=== PATIENT | female | born 1930 | race Caucasian/White ===

== ENCOUNTER → 2016-08-20 | Emergency (ER) | payer MEDICARE, OTHER ==
[~2016-08-20] MED LIST: ASPIR 8181 MG PO; CALCIUM 500 +1 EACH PO; CAYENNE450 MG PO; COQ-1030 MG PO; CRANBERRY400 MG PO; FISH OIL 1,0001 EAC1 PO; FLAX, FISH & B1 EACH PO; THERAGRAN-M1 TAB PO; TYLENOL EXTRA500 MG PO; VITAMIN B-650 MG PO; [UNRECOGNIZED DRUG - OTHER] PO
== END | disposition disaster alternative care site (69) ==
LOC: GAMB 18:55
DX: M54.9 Dorsalgia, unspecified (principal); G89.29 Other chronic pain; W19.XXXA Unspecified fall, initial encounter

== ENCOUNTER 2016-08-27 17:40 | Inpatient (IN) | payer MEDICARE, OTHER ==
[~2016-08-27] VITALS: Ht 162.6 cm; Wt 89.1 kg
--- NOTE | ~2016-08-27 | DS ---
PATIENT'S NAME: ALEX ASCENCIO [facility] AGE: 85 Y [address] ROOM: [address] [place] [id number] LOCATION: GPCU ADMIT DATE: 08/27/2016 Discharge Summary DISCHARGE DATE: FAMILY PHYSICIAN: Gregory Warner MD ATTENDING PHYSICIAN: Carleen Chambers Interim Discharge Summary PRINCIPAL DIAGNOSES: 1. Cardiac syncope. 2. Severe aortic stenosis, status post valvuloplasty. 3. Acute kidney injury on chronic kidney disease 3. 4. Essential hypertension. BRIEF HOSPITAL COURSE: This is an 85-year-old female who was admitted for evaluation of recurrent falls and syncope at home. Upon evaluation, she was noted to have very significant aortic murmur and was subsequently evaluated by an echocardiogram and she was found to have a critical aortic stenosis. The patient was seen by Cardiology and subsequently done an aortic valve valvuloplasty. Plan going forward is to continue to monitor the patient and she is to follow up with Cardiology as an outpatient for possible TAVR evaluation. The patient during her hospitalization had continued to do well, had not had any further syncopal episodes. The patient worked with PT, OT, and had done well with that since as well. The patient today is ambulating well, going to the bathroom and back without any issues. PHYSICAL EXAMINATION: GENERAL: The patient is awake, alert, oriented x3, in no acute distress. HEART: S1, S2. Regular rate and rhythm. ABDOMEN: Soft, nontender, and nondistended. EXTREMITIES: Without edema. NEUROLOGIC: Nonfocal. DISPOSITION: Per hospitalist taking care of the patient. As of now, discharge plans are to [facility] in a.m. The rest of discharge planning is to be determined per the hospitalist taking care of the patient's care from here on. MD RACHEL ONEILL/modl PATIENT'S NAME: ALEX ASCENCIO [facility] AGE: 85 Y [address] ROOM: [address] [place], [place] [address] LOCATION: GPCU ADMIT DATE: 08/27/2016 Discharge Summary DISCHARGE DATE: FAMILY PHYSICIAN: Gregory Warner MD ATTENDING PHYSICIAN: Carleen Chambers /[id number] d: 09/03/16 0151 t: 09/17/16 1523, DISCHARGE SUMMARY
--- NOTE | ~2016-08-27 | ECHO ---
Transthoracic Echocardiography Report (TTE) Demographics Patient Name ALEX ASCENCIO Date of Study 08/28/2016 Patient Number [id number] Visit Number [id number] Date of 1930 Room Number G6311 Gender Female Number Age 85 year(s) Referring Reyes Guerrero Community Relations Assistant Frieda Dorsey, Physician RT,RVT,RDCS Physician Interpreting Nathaniel Johnson MD Traffic Signal Supervisor Maintenance Physician Supervising Ordering Reyes Guerrero MD/MLP Physician MD Nurse Stress Special Warfare Boat Operator Conclusions Contractility Score Summary Normal Left Ventricular contractility was noted. Summary The estimated left ventricular ejection fraction is 60-65%. The left atrium is mildly dilated by LA volume index measurement. Moderate assymetric septal left ventricular hypertrophy. Mild mitral regurgitation by color Doppler. There is critical aortic stenosis by the Continuity Equation. The peak velocity is 5.3 m/s, the mean gradient is 65 mmHg, and the valve area based on the continuity equation is 0.3 cm2, stroke volume index is 38 ml/m2. There is mild pulmonary hypertension. The pulmonary pressure (RVSP) is 38.0 mmHg. Procedure Type of Study TTE procedure:2D Echocardiogram, M-Mode, Doppler , Color Doppler. Procedure Date Date: 08/28/2016 Start: 07:37 AM Study Location: Inpatient Portable Technical Quality: Adequate visualization Indications:Abnormal troponin. Additional Indications:Murmur. Appropriate Use Criteria: 9 Patient Status: Routine HR: 86 bpm BP: 147/66 mmHg M-Mode/2D Measurements LV Diastolic Dimension: 2.47 cm LV Systolic Dimension: 1.43 cm LV Septum Diastolic: 1.5 cm LV PW Diastolic: 1.24 cm AO Root Dimension: 2.3 cm Cardiac Output: 3.24 l/min LA Dimension: 3.5 cm EF Estimated: 60 % LVOT: 1.8 cm LVOT VTI: 14.8 cm LV Stroke volume: 37.64 ml Doppler Measurements AV Peak Velocity: 5.32 m/s MV Peak E-Wave: 1.15 m/s AV Peak Gradient: 113.21 mmHg MV Peak A-Wave: 1.89 m/s AV Mean Gradient: 68 mmHg MV E/A Ratio: 0.61 LVOT Peak Velocity: 0.63 m/s MV P1/2t: 40 msec TR Gradient:27.67 mmHg Estimated RAP:10 mmHg Estimated PASP: 37.67 mmHg Estimated RVSP: 38 mmHg A' Septal Velocity: 0.09 m/s E' Septal Velocity: 0.03 m/s MV E/E' Ratio: 36.1 Findings Left Ventricle Moderate assymetric septal left ventricular hypertrophy. Right Ventricle Normal right ventricle structure and function. Left Atrium The left atrium is mildly dilated by LA volume index measurement. Right Atrium Normal right atrial size. Mitral Valve Mild mitral regurgitation by color Doppler. Aortic Valve There is critical aortic stenosis by the Continuity Equation. The peak velocity is 5.3 m/s, the mean gradient is 65 mmHg, and the valve area based on the continuity equation is 0.3 cm2, stroke volume index is 38 ml/m2. Tricuspid Valve There is mild pulmonary hypertension. The pulmonary pressure (RVSP) is 38.0 mmHg. Pulmonic Valve Normal pulmonic valve structure and function. Pericardial Effusion No evidence of pericardial effusion. Miscellaneous Visualized portions of the aortic root and ascending aorta appear normal in size. Pleural Effusion No evidence of pleural effusion. Contractility Score LV regional wall motion:(0-Non visualized 1-Normal 2-Hypokinesis 3-Akinesis 4-Dyskinesis 5-Aneurysm) Signature dtt: Alex Armstrong (cardio) dtd: 08/28/16 0737 Physician Self Edit
--- NOTE | ~2016-08-27 | CON ---
PATIENT'S NAME: ALEX ASCENCIO [facility] AGE: 85 Y [address] ROOM: [id number] [place], [place] [address] LOCATION: GPCU ADMIT DATE: 08/27/2016 Consultation DISCHARGE DATE: FAMILY PHYSICIAN: Gregory Warner MD ATTENDING PHYSICIAN: BACILIO CHAMBERS REFERRING PHYSICIAN: HERIBERTO STEPHENS, Cup Machine Operator REFERRING PHYSICIAN: Bacilio Chambers M.D. HISTORY OF PRESENT ILLNESS: This is an 85-year-old female, who was admitted with weakness and frequent falls this past week. First time, she fell when she went to sit down on the chair that rolled out behind her. The second time, she thinks that she caught her cane in a rug and causing her to fall. The third time, her knee buckled. The last time she was found on the floor early in the a.m. after going to the bathroom by her family. Family reports that she also is slowing down and not moving very well. She denies shortness of breath, but also states that she does not get up and do much. She denies lightheadedness or dizziness. There is no report of palpitations. She has had some problems with increased peripheral edema, but no orthopnea or PND. She denies presyncope, but her family questions if she is not feeling lightheaded or dizzy. She reports to me that she is very frightened because of all of her falls. She does carry a history of aortic stenotic murmur, but in the past has refused any kind of treatment, but currently she is willing to talk about different treatment for that valve "if that is the cause of her falls." PAST MEDICAL HISTORY: 1. Stage IV endometrial cancer, post hysterectomy, chemotherapy and radiation in 2004. 2. Hyperlipidemia that was diagnosed in 2002. 3. Arthritis of the knees and hips. 4. Chronic kidney disease. 5. Aortic stenosis. 6. Osteopenia. 7. History of mild carotid artery disease per screening at [facility]. PAST SURGICAL HISTORY: In 1959 and 1963, 2, para 2, no AB. On 03/19/1997, she had an open cholecystectomy. On 10/20/1998, right cataract surgery. On 12/15/1998, left cataract surgery. In 2001, L4-L5 stenosis with microdiskectomy at the L4-L5 level with decompression of the lateral recess and partial medial facetectomy by Dr. Bill. On 09/29/2001, right total hip arthroplasty. On 06/01/2003, right total knee arthroplasty. On 02/28/2004, left total hip arthroplasty. On 01/21/2007, complex primary left total knee arthroplasty with computer PATIENT'S NAME: ALEX ASCENCIO [facility] AGE: 85 Y [address] ROOM: [id number] [place] [id number] LOCATION: GPCU ADMIT DATE: 08/27/2016 Consultation DISCHARGE DATE: FAMILY PHYSICIAN: Gregory Warner MD ATTENDING PHYSICIAN: BACILIO CHAMBERS navigation assistance. On 10/29/2007, total abdominal hysterectomy with bilateral salpingo-oophorectomy with lymph node dissection with 2 of 19 nodes positive for cancer. On 12/22/2014, cysto and retrogrades for hematuria and an abnormal CT - normal. ALLERGIES: MORPHINE CAUSES VOMITING. HOME MEDICATIONS: 1. Aspirin. 2. Multivitamins. FAMILY HISTORY: Mother had complications of diabetes mellitus. Father in his sleep. She had 8 siblings. One brother had coronary artery disease, the extent of this is unknown. One sister had pancreatic cancer and another sister had lung cancer, she was a heavy smoker. SOCIAL HISTORY: The patient currently lives at home alone. She is a lifelong nonsmoker and nondrinker. REVIEW OF SYSTEMS: GENERAL: She has been feeling a little more tired and slowing down. HEAD: No history of headache. EYES: No blurred vision or double vision. She wears corrective lenses. EARS: No problems with hearing. NOSE: No epistaxis or rhinorrhea. MOUTH: She has full set of dentures. THROAT: No difficulty with swallowing. NECK: No difficulty with arthritis. No pain with moving. PULMONARY: No cough or hemoptysis. CV: Per HPI. GI: Negative for nausea, vomiting, or diarrhea. No melena or hematochezia. : She had had hematuria, nothing recently. No problems with dysuria or pain with urination. Currently, she has been incontinent. MUSCULOSKELETAL: She has arthritis of the joints and hips. She also has a history of osteopenia. NEUROLOGIC: No TIA or CVA symptomatology, but family reports she is having difficulty with her memory. SKIN: No hair, nails, or skin changes that are concerning. PSYCHIATRIC: No history of depression. She is quite anxious. PHYSICAL EXAMINATION: VITAL SIGNS: She is 5 feet and 4 inches, weighs 192 pounds, blood pressure is PATIENT'S NAME: ALEX ASCENCIO [facility] AGE: 85 Y [address] ROOM: [place] [address] LOCATION: GPCU ADMIT DATE: 08/27/2016 Consultation DISCHARGE DATE: FAMILY PHYSICIAN: Gregory Warner MD ATTENDING PHYSICIAN: BACILIO CHAMBERS 152/71, heart rate is 90 and regular, and temperature is 97.6. SKIN: Warm, dry, and pink. HEENT: Pupils were equal. They did react briskly. NECK: Soft and supple. I am unable to hear any carotid bruits. LUNGS: Lung sounds are clear to auscultation anteriorly and posteriorly with good symmetrical chest rise. There is no evidence of wheezes, rales, or rhonchi. CV: Regular with a loud grade 3 to 4 aortic stenotic murmur heard best at the second intercostal space to the right of the sternum. PMI is nondisplaced. ABDOMEN: Soft. Bowel sounds are present in all 4 quadrants. EXTREMITIES: No peripheral edema. No clubbing. No cyanosis. NEUROLOGIC: Motor and sensory exam are normal in the upper extremities and lower extremities. Gait was not assessed. PSYCHIATRIC: She is alert, very anxious. LABORATORY DATA: She had an MRI of her head that was normal after her fall. Troponin is 0.334 to 0.564 and down to 0.322. ProBNP is 5898. Hemoglobin 11.4, hematocrit 33.9, and normal white count. BUN 40, creatinine 2.0, sodium 143, potassium is 3.7, and magnesium is 1.9. ASSESSMENT: 1. Syncope. Her telemetry is showing a regular sinus rhythm with inverted P- waves, rates are in the 70s to 80s. We will check orthostatic blood pressures to rule out orthostatic hypotension. 2. Aortic stenosis. This is very significant on exam. Her echocardiogram is pending. She may need balloon angioplasty and aortic valve procedure. She did not dismiss the idea of possibly having this done. 3. Acute on chronic kidney disease. Her baseline creatinine is 1.4. We will continue to monitor this closely. 4. Elevated creatinine. Her troponin I is most likely secondary to the elevation in creatinine. She has not had any problems with exertional chest pain. We will not pursue a stress test. Further recommendations will be forthcoming once Dr. Godinez reviews the echocardiogram. The assessment and plan, history of present illness, and physical exam are per Dr. Godinez. Further recommendations will be forthcoming. STEFFI DIOR APRN FOR TRISTON GODINEZ MD TGP/osvaldol PATIENT'S NAME: ALEX ASCENCIO [facility] AGE: 85 Y [address] ROOM: [place] [address] [facility] ADMIT DATE: 08/27/2016 Consultation DISCHARGE DATE: FAMILY PHYSICIAN: Gregory Warner MD ATTENDING PHYSICIAN: BACILIO CHAMBERS /[id number] d: 08/31/16 1815 t: 09/14/16 1159, CONSULTATION REPORT
--- NOTE | ~2016-08-27 | HP ---
PATIENT'S NAME: ALEX SACENCIO [facility] AGE: 85 Y [address] ROOM: [place] [id number] LOCATION: GPCU ADMIT DATE: 08/27/2016 History & Physical DISCHARGE DATE: FAMILY PHYSICIAN: Gregory Warner MD ATTENDING PHYSICIAN: BACILIO BARAJAS DATE OF SERVICE: CHIEF COMPLAINT: Falls. HISTORY OF PRESENT ILLNESS: This is an 85-year-old lady with a past medical history of endometrial carcinoma, status post hysterectomy; bilateral knee and hip replacement; who lives at home by herself; started experiencing falls for the last couple of days. She in total experience 4 falls and hit her head on the carpeted floor. She was taken to the primary care physician where basic lab work was done, which did show elevated creatinine and mildly elevated troponin levels. She was transferred here for further medical care. On my encounter, she denied having any dizziness, any vertigo, any trouble with the eyes, any trouble swallowing, any chest pain, any chest pressure, any shortness of breath, any cough or sputum production, any abdominal pain, any constipation or diarrhea, any burning on urination, PND, or orthopnea. She endorsed having drinking a lot of coffee recently without any adequate other hydration. PAST MEDICAL HISTORY: 1. History of aortic murmur, which had been evaluated in the past. 2. History of endometrial carcinoma, status post hysterectomy and radiation and chemo. 3. Osteoarthritis, status post bilateral knee as well as hip replacement. MEDICATIONS: 1. Aspirin 81 mg p.o. once daily. 2. Multiple nutritional supplements and vitamins at home. ALLERGIES: MORPHINE. SOCIAL HISTORY: Never a smoker. No alcohol or drug abuse. Lives by herself. FAMILY HISTORY: Sister had cancer. One of the brothers had diabetes. REVIEW OF SYSTEMS: PATIENT'S NAME: ALEX ASCENCIO [facility] AGE: 85 Y [address] ROOM: [address] [address] LOCATION: GPCU ADMIT DATE: 08/27/2016 History & Physical DISCHARGE DATE: FAMILY PHYSICIAN: Gregory Warner MD ATTENDING PHYSICIAN: BACILIO BARAJAS All other systems reviewed and were negative except as mentioned in the HPI. PHYSICAL EXAMINATION: VITAL SIGNS: 156/76, 16, afebrile, 89. GENERAL: No acute distress. Alert and oriented to x3. HEAD: Atraumatic and normocephalic. Mild bruise on the forehead and on the right cheek. EYES: Nonicteric. No pallor. OROPHARYNX: Dry mucous membranes. CARDIOVASCULAR: S1 and S2. Systolic ejection murmur 3/6 at the aortic region radiating to the carotids. RESPIRATORY: Clear to auscultation bilaterally. ABDOMEN: Soft, nontender, and nondistended. Bowel sounds are present. EXTREMITIES: +1 extremity edema on the left side. SKIN: Dryness, but no bruises noted. PSYCH: Normal affect, mood, and speech. NEURO: Cranial nerves II through XII intact. No motor or sensory deficits noted. LABORATORY DATA: Lab work from the outside provider noted that the creatinine is 2.1, up from baseline of 1.4. Her cardiac troponin was 0.33, which was withdrawn at the clinic. I do not have the full lab report yet. ASSESSMENT AND PLAN: 1. Acute kidney insufficiency on chronic kidney disease secondary to dehydration. 2. Dehydration. 3. Syncopal episodes. 4. Multiple falls. 5. History of endometrial cancer. 6. Aortic murmur, likely aortic stenosis. Myocardial injury in the 2nd of poor renal function. We are going to admit this patient to the PCU at this point. We are going to obtain orthostatic vitals. I will obtain a CAT scan in order to investigate the syncopal episode, 12-lead EKG as well as echocardiography. Meanwhile, we will hydrate the patient and monitor her labs in the morning. She had history of multiple urinary tract infections in the past, so we will send a UA as well. We will involve Physical Therapy as well as Occupational Therapy. Idea of assisted living facility was brought in and the patient is agreeable to that. Echocardiography as mentioned above will be done to evaluate aortic valve as a possible cause of these multiple syncopal episodes. Regarding her mildly elevated troponin levels, I believe this is secondary to LO and not representing any cardiac ischemia. We will cycle 3 sets and see any rise and PATIENT'S NAME: ALEX ASCENCIO [facility] AGE: 85 Y [address] ROOM: [place] [address] LOCATION: [facility] ADMIT DATE: 08/27/2016 History & Physical DISCHARGE DATE: FAMILY PHYSICIAN: Gregory Warner MD ATTENDING PHYSICIAN: BACILIO BARAJAS, and treat it accordingly. The patient is DNR/DNI. MD MATI UGARTE/osvaldol /[id number] D: [id number] T: [id number] HISTORY & PHYSICAL
--- NOTE | ~2016-08-27 | ECHO ---
Transthoracic Echocardiography Report (TTE) Demographics Patient Name ALEX ASCENCIO Date of Study 08/29/2016 Patient Number [id number] Visit Number [id number] Date of 1930 Room Number G6311 Gender Female Number Age 85 year(s) Referring Arabella Romero Accordion Tuner Fabián Jimenez Physician RD, T Physician Interpreting Arabella Romero Television Production Clerk Physician MD Supervising Ordering Arabella Romero MD/MLP Physician MD Nurse Stress Teller Vault Conclusions Summary Limited echo post BAV with 18 mm Zmed balloon: Aortic valve gradients reduced from mean gradient of 65 mmHg to 25 mmHg post BAV. Procedure Type of Study TTE procedure:Doppler , Echo Limited w/o Contrast. Procedure Date Date: 08/29/2016 Start: 09:25 AM Study Location: Machinist Brake Technical Quality: Adequate visualization Indications:Aortic stenosis. Additional Indications:Post BAV Appropriate Use Criteria: 9 Patient Status: SARAH Allergies - Morphine. Doppler Measurements AV Peak Velocity: 3.19 m/s AV Peak Gradient: 40.7 mmHg AV Mean Gradient: 25 mmHg Signature dtt: MARCOS VALLES dtd: 08/29/16 0925 Physician Self Edit
--- NOTE | ~2016-08-27 | CATH ---
Cardiac Diagnostic + PCI Report Demographics Patient Name SONU Aguilar Gender Female Date of 1930 Age 85 year(s) Patient Number [id number] Date of Study 08/29/2016 Visit Number [id number] Room Number G6311 [place] [id number] Ht 162.56 cm Wt 87.[address] Ref[address] [facility] Primary Physician Physician Jose M PENNINGTON Performing [facility] Secondary Physician Physician Heather PENNINGTON Diagnostic [facility] Assisting Physician Physician Heather PENNINGTON Interventional [facility] Physician Scrap Baler Physician Heather PENNINGTON Findings and Conclusions Diagnostic Findings and Conclusion 1. Mild luminal irregularities in non dominant RCA. No evidence of any significant epicardial CAD. 2. Critical with syncope/DE OLIVEIRA/fatigue. Mean gradient pre BAV 65 mmHg. Diagnostic Recommendations Proceed with BAV. Interventional Findings and Conclusion 1. S/P BAV with 18 mm ZMed balloon with 17 cc diluted contrast in balloon. 2. Temp pacer for BAV. Interventional Recommendations Echo: Pre-BAV mean gradient 65 mmHg. Post BAV 25 mmHg. Continue observation in ICU. Patient tolerated the procedure well without any acute complications. PT/OT upon discharge. Reevaluate patient in clinic and if there is improvement in symptoms, she will be a good candidate for TAVR. Thank you Dr. Armstrong for allowing us to participate in the care of Mrs. Gu. Procedure Description The patient was brought to the diagnostic cardiac catheterization-EP laboratory in the fasting, non-sedated state. Informed consent was obtained in the written and verbal form after the risks and benefits were explained. The patient had no further questions and agreed to proceed. The planned puncture-incision site(s) were shaved and prepped with ChloraPrep. After a three minute dry time the patient was draped in the usual sterile manner. Conscious sedation and pain control medications were delivered by a registered nurse under physician guidance. Surface ECG rhythm, blood pressure measurement, supplemental oxygen, and pulse oximetry were monitored throughout the procedure. Femoral arterial access. The access site was infiltrated with lidocaine. The vessel was entered with the Seldinger technique. A sheath was advanced into the vessel and used for catheter placement. Venous access. The access site was infiltrated with lidocaine. The vessel was entered with the Seldinger technique. A sheath was advanced into the vessel and used for catheter placement. Perclose(s) was advanced into the artery and deployed. These are to be tied at the end of the procedure. Temporary pacing. Pacing was achieved from the right ventricular apex. Threshold verification and amplitude adjustment were performed. The temporary pacemaker was removed at the end of the procedure. Aortic valvuloplasty. Following this an AL1 catheter was advanced into the ascending aorta using the 0.35 J-wire and the J-wire was withdrawn. A straight-tipped fixed core wire was used to cross the aortic valve in a retrograde fashion and the AL1 catheter was advanced into the left ventricle and the straight tipped wire was withdrawn. Following this an exchange length Amplatzer Super Stiff wire with the shape of the left ventricular apex was advanced into the left ventricle through the AL1 and the AL1 catheter was withdrawn. For proper positioning of the wire at the LV apex without inducing sustained ventricular tachycardia, a pigtail was used and the pigtail was withdrawn. Following this an aortic balloon was placed across the aortic valve. Rapid pacing was started at the rate of 160 beats per minute and absence of 2:1 block was confirmed. The pulsed-wave pressure of less than 50 mm was achieved, rapid inflation of the balloon was performed and the balloon was stabilized across the aortic valve. After the balloon dilatation the gradient was then measured by Echo. Following this, both the balloon and the wire were withdrawn from the left ventricle and withdrawn from the body. With the help of the [id number] technique. Removal of temporary pacemaker under fluoro guidance without difficulties. Hemostasis: The arterial sheath(s) was removed. Perclose(s) were tied and hemostasis was achieved. Hemostasis: The venous sheath(s) was removed. The patient was transferred to the nursing floor with continuous monitoring via cart accompanied by a nurse. The patient left the laboratory in stable condition. Diagnostic Cath Status: Urgent Procedure Procedure Type Diagnostic procedure:Angiography:, Coronary Angios w/LHC, Support:, Temporary Pacemaker PCI procedure:Structural Heart:, Valvuloplasty:, Aortic Indications: Aortic stenosis. The procedure was explained in detail to the patient. Risks, complications and alternative treatments were reviewed. Written consent was obtained. Medications Reviewed with Patient prior to Procedure. Angiographic Findings Dominance: Left Cardiac Arteries and Lesion Findings LMCA: Normal (0% Stenosis). LAD: Minor Luminal Irregularities. LCx: Normal (0% Stenosis). RCA: Minor Luminal Irregularities. Procedure Data Procedure Date Date: 08/29/2016Start: 08:37 AMEnd: 09:47 AM Entry Locations - Retrograde Percutaneous access was performed through the Right Femoral artery (Primary location). A 6 Fr sheath was inserted. This was exchanged for a 10 Fr sheath. The sheath was exchanged again for a 12 Fr sheath. Hemostasis was successfully obtained using Perclose ProGlide (Presley). Closure Comments: Percloses tied by Dr. Saunders and Madelaine Antunez, RT.. - Antegrade Percutaneous access was performed through the Right Femoral vein. A 6 Fr sheath was inserted. Hemostasis was successfully obtained using Manual Compression. Closure Comments: Pressure held by Madelaine Antunez, . Procedure Medications Order and Administration + + + +--------+ !Time !Medication !Dosage !Route ! + + + +--------+ !08/29/2016 08:31 AM !Fentanyl !50 mcg !I.V. ! + + + +--------+ !08/29/2016 08:36 AM !Versed !0.5 mg !I.V. ! + + + +--------+ !08/29/2016 08:40 AM !Oxygen !2 l/min !NC ! + + + +--------+ !08/29/2016 09:04 AM !Heparin (ACC_3) !5000 units !I.V. ! + + + +--------+ !08/29/2016 09:26 AM !Protamine !30 mg !I.V. ! + + + +--------+ Devices Used - A5 Fr. BS JL 4 Diag. Catheterwas used for:Left coronary angiography. - A5 Fr. BS JR 4 Diag. Catheterwas used for:Right coronary angiography. - A5 Fr. BS AL1 Diag. Catheterwas used for:LV Pressures. Contrast Material - Isovue 62816 ml Fluoroscopy Time: Diagnostic: 6:48 minutes. Total: 6:48 minutes. Fluoroscopy Dose: Diagnostic: 403 mGy. Total: 403 mGy. Estimated Blood Loss: 25 ml. Medical History Performed Procedures and Imaging Results - No [facility] stress or imaging studies were performed. Allergies - Morphine. Admission Data Admission Date: 08/27/2016 Admission Time: 05:42 PM Admit Source: Transfer acute care facility Insurance Payors: Medicare. Admission Medications + +------+-----+---------+---------+ + + !Medication !Dosage!Times!Last !Last !Administered !Comments ! ! ! !Per !Delivery !Delivery ! ! ! ! ! !Day !Date !Time ! ! ! + +------+-----+---------+---------+ + + !Aspirin (any) ! ! ! ! !Yes ! ! + +------+-----+---------+---------+ + + !Unfractionated ! ! ! ! !Yes ! ! !Heparin (any) ! ! ! ! ! ! ! + +------+-----+---------+---------+ + + Clinical Evaluation Leading to Procedure - There were no CAD presentation symptoms. - There were no anginal symptoms. Snapshots Hemodynamics Condition: Rest O2 Consumption: Estimated: 178.93Heart Rate: 80 bpm Pressures (mmHg) +-----+ + !Site !Pressure ! +-----+ + !AO !139/59 (89) ! +-----+ + !LV !270/12 ,15 ! +-----+ + !LV !270/12 ,15 ! +-----+ + !LV !255/10 ,13 ! +-----+ + !FA !84/51 (67) ! +-----+ + !FA !168/61 (102) ! +-----+ + Shunts Oxygen Values O2 Capacity 153.68 O2 Consumption 178.93 Signatures dtt: HEATHER VALLES dtd: 08/29/16 0837 Physician Self Edit
--- NOTE | ~2016-08-27 | DS ---
PATIENT'S NAME: ALEX ASCENCIO [facility] AGE: 85 Y [address] ROOM: [address] [address] LOCATION: GPCU ADMIT DATE: 08/27/2016 Discharge Summary DISCHARGE DATE: 09/04/2016 FAMILY PHYSICIAN: Gregory Warner MD ATTENDING PHYSICIAN: Carleen Chambers ATTENDING PHYSICIAN: Hima Garibay MD PRIMARY CARE PHYSICIAN: Gregory Warner MD FINAL/DISCHARGE DIAGNOSES: 1. Syncope, cardiogenic, resolved. 2. Critical aortic stenosis status post balloon aortic valvuloplasty. 3. Physical deconditioning. 4. Osteoarthritis. 5. Acute kidney injury on chronic kidney disease, 3, resolved. 6. History of hypertension. 7. History of endometrial cancer. CONSULTATIONS: 1. Cardiology, Dr. Alex Armstrong. 2. Cardiology, Dr. Heather Bell. PROCEDURES PERFORMED: Left heart catheterization and balloon aortic valvuloplasty by Dr. Heather Bell. REASON FOR ADMISSION: This is an 85-year-old female, who presented with frequent falls. The patient was also found to have a syncope likely cardiogenic. An echocardiogram showed that the patient had severe aortic stenosis. The patient was then admitted to [facility] for further evaluation and management. Please see Dr. Chambers's admission H and P for further details. DIAGNOSTIC STUDIES: A transthoracic echocardiogram was done initially by Dr. Alex Armstrong that showed normal left ventricular contractility, ejection fraction was 60 to 65%, and moderate asymmetric septal left ventricular hypertrophy noted. The patient had critical aortic stenosis with valve area of 0.3 cm2, mild pulmonary hypertension with RVSP of 38 mmHg was noted. The patient then underwent a balloon aortic valvuloplasty and limited echocardiogram was done post BAV with 18 mm Z-MED balloon that showed aortic valve gradient reduced from mean gradient of 65 to 25 mmHg post-BAV. The patient also underwent cardiac diagnostic catheterization prior to the procedure that showed mild luminal irregularities and nondominant RCA with no evidence of any significant epicardial coronary artery disease, critical with syncope, and mean gradient pre-BAV of 65 mmHg was noted. PATIENT'S NAME: ALEX ASCECNIO [facility] AGE: 85 Y [address] ROOM: [facility] [place], [place] [address] LOCATION: GPCU ADMIT DATE: 08/27/2016 Discharge Summary DISCHARGE DATE: 09/04/2016 FAMILY PHYSICIAN: Gregory Warner MD ATTENDING PHYSICIAN: Carleen Chambers Cardiac enzymes were done. Troponin I of 0.334 on admission was trending up and subsequently was 0.322. ProBNP of 5898. Serial CBCs were done and showed essentially normal white count, hemoglobin, and hematocrit levels. Platelet count was 137,000 on admission and 149,000 on the day of discharge. The patient had serial BMPs done. Electrolytes were within normal range. The patient's creatinine was 2.2 on admission. At the time of discharge, creatinine had stabilized at 1.5, magnesium level of 2.0. Liver function tests were normal. The patient's GFR was 24 on admission. At the time of discharge was stable at 33. Lipid panel was done on the day of discharge, and it showed total cholesterol of 191, triglycerides 143, HDL 57, and LDL 106. Urine creatinine random of 84, urine sodium random of 108. TSH was 0.977. A chest x-ray was done for syncope and showed hazy left infrahilar and left basilar opacity consistent with lung consolidation and pleural fluid. Implanted vascular access catheter was in place. CT head was done for syncope on admission and showed no acute hemorrhage, generalized atrophic changes and white matter small-vessel ischemic changes were noted, likely associated with aging. No skull fracture was noted. Mucosal thickening at the left sphenoid sinus was detected. Urine culture was negative. HOSPITAL COURSE: This is an 85-year-old female, who presented with recurrent falls. The patient was evaluated. Her troponin was found to be elevated during this admission. She was also found to have LO on CKD 3 and was gently hydrated, and LO on CKD 3 resolved subsequently. The patient was found to have a cardiogenic syncope. CT head was done and did not show any acute changes. A transthoracic echocardiogram was done that showed critical aortic stenosis. The patient was taken off her blood pressure medications at that point of time. Dr. Alex Armstrong then recommended that the patient undergo balloon aortic valvuloplasty with Dr. Heather Bell. The patient then underwent a successful left heart catheterization along with balloon aortic valvuloplasty with Dr. Heather Bell. Postoperative course was uncomplicated. The patient continued to do well. She was ambulating in the hallway. She was tolerating p.o. Her acute kidney injury on chronic kidney disease resolved subsequently. Patient will need to be evaluated for TAVR as outpatient. Arrangements were then made for the patient to go to [facility] in a.m. During this admission, she was given physical therapy for physical deconditioning as well and she did well with that. DISCHARGE INSTRUCTIONS: The patient was discharged to [facility] in stable condition. Follow up with Dr. Warner in 4 to 5 days' time. Follow up with Dr. Aelx Armstrong, Cardiology in 2 weeks' time for TAVR evaluation as outpatient. The patient is a do not resuscitate, do not PATIENT'S NAME: ALEX ASCENCIO [facility] AGE: 85 Y [address] ROOM: [place] [address] LOCATION: GPCU ADMIT DATE: 08/27/2016 Discharge Summary DISCHARGE DATE: 09/04/2016 FAMILY PHYSICIAN: Gregory Warner MD ATTENDING PHYSICIAN: Carleen Chambers intubate code status. She is on a cardiac diet. Calorie count is not needed. She is not n.p.o. weightbearing is as tolerated. OT and PT to evaluate and treat as indicated. O2 p.r.n. to keep sats more than 90%. CBC and BMP at followup with PCP. The patient does not have a urinary catheter. Rehabilitation potential is fair. Discharge potential is fair. The patient and family are aware of condition and prognosis and were updated by me. Shala crush appropriate medications. DISCHARGE MEDICATIONS: 1. Multivitamin 1/2 tablet p.o. b.i.d., supplement. 2. Fish oil 1000 mg 1 capsule p.o. b.i.d., supplement. 3. Pyridoxine 50 mg p.o. b.i.d. p.r.n. supplement. 4. Tylenol 1000 mg p.o. b.i.d. p.r.n. pain. 5. Aspirin 81 mg p.o. q. day for aortic stenosis. 6. Nitrostat 0.4 mg sublingual as needed p.r.n. chest pain. 7. CoQ10, 30 mg p.o. b.i.d., supplement. 8. Calcium 500 plus vitamin D 1 tablet p.o. b.i.d., supplement. 9. Fish oil, vitamin E, and fat #5 1 capsule p.o. b.i.d., supplement. 10. Zocor 40 mg p.o. at bedtime. We will call in to her pharmacy. Lipid panel was done after the patient was discharged. This patient was managed by the hospitalist and Cardiology teams during this admission. HIMA GARIBAY MD MT/osvaldol /[id number] CC: MD Gregory Griggs MD d: 09/05/16 1533 t: 09/10/16 2136, DISCHARGE SUMMARY
[2016-08-27] MEDS ORDERED: FISH OIL 1,0001 EAC1 PO (18:37)
[2016-08-27] MEDS ORDERED: THERAGRAN-M1 TAB PO (18:37)
[2016-08-27] MEDS ORDERED: CAYENNE450 MG PO (18:38)
[2016-08-27] MEDS ORDERED: [UNRECOGNIZED DRUG - OTHER] PO (18:38)
[2016-08-27] MEDS ORDERED: VITAMIN B-650 MG PO (18:39)
[2016-08-27] MEDS ORDERED: TYLENOL EXTRA500 MG PO (18:39)
[2016-08-27] MEDS ORDERED: ASPIR 8181 MG PO (18:40)
[2016-08-27] MEDS ORDERED: COQ-1030 MG PO (18:41)
[2016-08-27] MEDS ORDERED: CRANBERRY400 MG PO (18:41)
[2016-08-27] MEDS ORDERED: CALCIUM 500 +1 EACH PO (18:41)
[2016-08-27] MEDS ORDERED: FLAX, FISH & B1 EACH PO (18:42)
--- NOTE | 2016-08-27 19:33 | NUR ---
85 Y/O FEMALE ADMITTED FOR ELEVATED TRIPONIN FRO [facility] OFFICE. PT HAS ALSO HAS FALLEN 4X IN THE PAST 8 DAYS & STATES HER LT LEG & ARMS HAVE BEEN VERY WEAK THIS PAST WEEK ALONG WITH FAMILY CONCERNS ABOUT HER MEMORY WELL. PT LIVES AT HOME ON HER OWN. PT IS ALERT & ORIENTED. ALLERGIES - MORPHINE=N/V MEDICAL & SURGICAL HISTORY - CATHERINE/BSO WITH LYMPH NODES, CHEMO & RADIATION & HAS HAS A RT CHEST PORT. BILAT CATARACT W/ IOLI, LAP AY, BILAT SHAUNA, BILAT TKA, LUMBAR MICRODISCECTOMY. CKD, HEMATURIA OFF & ON SINCE 2014, MURMUR, ENDOMETRIAL CA 2004, ARTHRITIS. REPORT GIVEN TO DANIE RN, PT PRIMARY CARE NURSE ADM EDUCATION CONPLETED WITH PT & FAMILY AT BEDSIDE.
[2016-08-28 05:11] LABS: BASOPHIL # 0.1 K/uL (0.0-0.2); BASOPHIL % 0.7 %; EOSINOPHIL # 0.1 K/uL (0.0-0.5); HEMATOCRIT 33.9 % (30.0-46.0); HEMOGLOBIN 11.4 g/dL (10.0-15.0); IMMATURE GRANULOCYTE % 0.3 %; LYMPHOCYTE # 1.5 K/uL (0.8-4.0); LYMPHOCYTE % 21.7 %; MCH 31.3 pg (27.0-34.0); MCHC 33.6 gm/dL (32.0-36.5); MCV 93.1 fl (83.0-98.0); MONOCYTE # 0.7 K/uL (0.0-1.0); MONOCYTE % 10.8 %; MPV 11.6 fl (9.4-12.4); NEUTROPHIL # (ANC) 4.4 K/uL (1.8-7.8); NEUTROPHIL % 64.5 %; NRBC % 0 /100WBC (0-0.00); PLATELET COUNT 137 K/uL (150-450); RBC 3.64 M/uL (3.00-5.00); RDW-CV 12.1 % (11.9-14.6); WBC 6.8 K/uL (4.0-11.0)
[2016-08-28 07:30] LABS: ANION GAP 15.7 (10.0-19.0); CALCIUM 10.3 mg/dL (8.5-10.5)
[2016-08-28 07:32] LABS: POTASSIUM 3.7 mMol/L (3.7-5.1)
--- NOTE | 2016-08-28 11:41 | NUR ---
Introduced self and role of care management to patient. She lives [place] [facility] by herself. She states that she is able to do all her own ADL"s. She has been using a cane since falling 4 time recently. She has a son that lives next door that does help if needed. She also has a daughter that live north of [place] that is a nurse that helps. We discussed discharge plans. She would like to be able to go home, however she realizes that she may need a short skilled stay first. She does not have a preference of which skilled facility she would go with except does not want [facility]. I did explain that I had received a consult to give her information about Assisted living facilities in [place]. I did give her the handout with all the [facility] listed. I did explain that going to an LONG TERM from the hospital does not happen. She or her family would need to contact the [facility] she was intrested in to see if they had any opening and then they would have to complete an application/financial form. She verbalized understanding. She agrees to work with therapies. She denies any needs at this time. Will continue to follow.
--- NOTE | 2016-08-28 16:11 | NUR ---
Significant Event: A/OX3, FORGETFUL AT TIMES. NO COMPLAINTS OF PAIN. PT. TRANSFERS 2 ASSIST TO CHAIR. INCONTINENT OF URINE TODAY, STILL NEED A UA. SLIV TO R)CHEST PORT. CARDIOLOGY CONSULT, STILL WAITING ON DR. GODINEZ TO SEE PT. PT. DOESN'T WANT TO SEE , DOESN'T FEEL THE NEED TO SEE, SAYS SHE'S OKAY WITH DYING. PT. CAN BE CRABBY AT TIMES, BUT HAS BEEN COOPERATIVE WITH NURSING TODAY. Follow up: CONTINUE WITH POC.
--- NOTE | 2016-08-29 04:57 | NUR ---
Significant event: A/O x 3. up to see patient during shift change last night and talked with patient about possible heart cath this am with Dr. Saunders. called and had permits printed for heart cath, balloon aortic valvuloplasty and temp pacemaker, she will be up to talk with the patient and family around 0800 this morning. Patient has been npo since midnight. Right chest port had to be re accessed as it was unable to be flushed at start of shift and was leaking.
[2016-08-29 06:03] LABS: ALBUMIN 2.9 gm/dL (3.5-5.0); ANION GAP 11.9 (10.0-19.0); CALCIUM 9.9 mg/dL (8.5-10.5); MAGNESIUM 2.1 mg/dL (1.8-2.6); POTASSIUM 3.9 mMol/L (3.7-5.1)
[2016-08-29 06:04] LABS: PHOSPHORUS 1.9 mg/dL (2.5-4.9)
[2016-08-29 06:07] LABS: BASOPHIL % 0.7 %; EOSINOPHIL # 0.2 K/uL (0.0-0.5); EOSINOPHIL % 3.4 %; HEMATOCRIT 34.2 % (30.0-46.0); HEMOGLOBIN 11.3 g/dL (10.0-15.0); IMMATURE GRANULOCYTE % 0.3 %; LYMPHOCYTE # 1.4 K/uL (0.8-4.0); LYMPHOCYTE % 23.9 %; MCH 31.1 pg (27.0-34.0); MCV 94.2 fl (83.0-98.0); MONOCYTE # 0.5 K/uL (0.0-1.0); MONOCYTE % 8.7 %; MPV 12.3 fl (9.4-12.4); NEUTROPHIL # (ANC) 3.7 K/uL (1.8-7.8); NRBC % 0 /100WBC (0-0.00); PLATELET COUNT 136 K/uL (150-450); RBC 3.63 M/uL (3.00-5.00); RDW-CV 12.2 % (11.9-14.6); WBC 5.9 K/uL (4.0-11.0)
--- NOTE | 2016-08-29 10:13 | NUR ---
0810 DR MAS HERE TO EXPLAIN PROCEDURE TO PTAND FAMILY,ALL AREIN AGREEMENT TOP PROCEED. PERMITS SIGNED AND PT TAKEN BY BED TO PROFESSIONAL SYSTEM ADMINISTRATOR. [id number] REPORT CALLED TO YARITZA MATIAS IN ICU. SEE CHARTING FOR FURTHER DETAILED REPORT AND ASSESSMNET.
--- NOTE | 2016-08-29 16:20 | NUR ---
Significant Event: Patient is A&O X3, forgetfull at times. Follows all commands. Pupils are equal and reactive. SBP have been upper 90's-140's, MAP's 70's-80's, HR have been 60's-80's. Patient had a valvuloplasty, puncture site is right groin. Patient is on RA with o2 sats 97-98%. Lung sounds are clear and diminished and diminished in the bases. Patient is bedrest until 1800. Patient is a heavy 2 assist. Follow up:
[2016-08-30 05:30] LABS: ALBUMIN 2.8 gm/dL (3.5-5.0); ANION GAP 12.2 (10.0-19.0); CALCIUM 9.4 mg/dL (8.5-10.5); CREATININE 1.6 mg/dL (0.5-1.1); POTASSIUM 4.2 mMol/L (3.7-5.1); TOTAL BILIRUBIN 0.2 mg/dL (0.0-1.5); TOTAL PROTEIN 5.6 g/dL (6.0-8.4)
[2016-08-30 05:41] LABS: BASOPHIL % 0.5 %; EOSINOPHIL # 0.2 K/uL (0.0-0.5); EOSINOPHIL % 3.5 %; HEMATOCRIT 31.4 % (30.0-46.0); HEMOGLOBIN 10.4 g/dL (10.0-15.0); IMMATURE GRANULOCYTE % 0.5 %; LYMPHOCYTE # 1.2 K/uL (0.8-4.0); MCH 31.2 pg (27.0-34.0); MCHC 33.1 gm/dL (32.0-36.5); MCV 94.3 fl (83.0-98.0); MONOCYTE # 0.6 K/uL (0.0-1.0); MONOCYTE % 9.8 %; MPV 11.8 fl (9.4-12.4); NEUTROPHIL # (ANC) 3.9 K/uL (1.8-7.8); NEUTROPHIL % 65.7 %; NRBC % 0 /100WBC (0-0.00); PLATELET COUNT 131 K/uL (150-450); RBC 3.33 M/uL (3.00-5.00); RDW-CV 12.2 % (11.9-14.6)
--- NOTE | 2016-08-30 06:51 | NUR ---
Significant Event: Pt is alert and orineted x3, can be forgetful at times. Pupils are equal and reactive. Moves all extremities spontaneously and to command. Groin site has some bruising and is covered with yamel and tegaderm. On RA. Has has several large incont voids. No BM this shift. Chest port accessed with good blood return. Status changed to PCU Follow up: continue to monitor
--- NOTE | 2016-08-30 15:33 | NUR ---
Called and spoke with patients daughter Mary. She agrees patient will need to go somewhere for a skilled stay. She states that she has no preference on faciliaties. She stated to just find somewhere that has [facility] bed. Will work on placement
--- NOTE | 2016-08-30 16:56 | NUR ---
Referrals faxed to [facility]. Will wait to hear back for the facicities to see who can accept.
--- NOTE | 2016-08-30 17:37 | NUR ---
Significant Event: Patient is A&O X3,forgetful at times follows all commands, pupils are equal and reactive. SBP have been 110-150's, goal for blood pressure is 150/90, MAP's have been 70's-90's. HR have been 80's-90's. Patient is on RA with o2 sats 97-100%. Lung sounds are clear and diminished. Patient has been incontient of urine X4. BM X3. Patient is a 2 assist to the BR and chair. Follow up:
--- NOTE | 2016-08-31 05:05 | NUR ---
Significant Event: Pt oriented x3, but forgetful and does make inappropriate statements at times. SBP's 100s and MD has been notified. Complaints of neck pain tonight, tylenol given without relief, kpad provided. Noted relief with the warm therapy. Pt is incontinent. Transfers with 2 assist. R)groin remains soft, without hematoma present, drsg changed to bandaid. Follow up: Still need ua.
[2016-08-31 05:21] LABS: CALCIUM 9.8 mg/dL (8.5-10.5); CREATININE 1.5 mg/dL (0.5-1.1); PHOSPHORUS 2.4 mg/dL (2.5-4.9)
[2016-08-31 05:23] LABS: BASOPHIL % 0.4 %; EOSINOPHIL # 0.3 K/uL (0.0-0.5); EOSINOPHIL % 4.7 %; HEMATOCRIT 29.8 % (30.0-46.0); IMMATURE GRANULOCYTE % 0.7 %; LYMPHOCYTE # 1.1 K/uL (0.8-4.0); LYMPHOCYTE % 18.9 %; MCH 31.6 pg (27.0-34.0); MCHC 33.6 gm/dL (32.0-36.5); MCV 94.3 fl (83.0-98.0); MONOCYTE # 0.5 K/uL (0.0-1.0); MONOCYTE % 9.3 %; MPV 11.8 fl (9.4-12.4); NEUTROPHIL # (ANC) 3.8 K/uL (1.8-7.8); NRBC % 0 /100WBC (0-0.00); PLATELET COUNT 129 K/uL (150-450); RBC 3.16 M/uL (3.00-5.00); RDW-CV 12.4 % (11.9-14.6); WBC 5.7 K/uL (4.0-11.0)
--- NOTE | 2016-08-31 13:50 | NUR ---
Social visit with patient today. We discussed her discharge plans. I explained that [facility] may have a bed available on Saturday. [facility] can come up and do an evaluation on Saturday. I did update patients daughter Mary. Will continue to follow.
--- NOTE | 2016-08-31 20:22 | NUR ---
D:Report recieved at 1715 from ICU. Patient transferred and recieved at 1730. Patient brought to room per recliner. Is alert and orientated. Personal belongings brought with patient. Patient reports her family had brought her [employer] for supper. Has right chest port that is SL. Bandaid to right groin. ICU has been putting aloe vesta to small open area to coccoyx that was present on admission. Has ambulated in hallway and been up to commode. Family is looking for senior care placement. P:Strengthening
--- NOTE | 2016-09-01 04:40 | NUR ---
Significant Event: Patient is alert, oriented x3 most of the time. Became slightly disoriented to place earlier. She thought she was still in ICU. Otherwise has been appropriate. Frequently forgetful. Becomes irritable with staff at times but has been cooperative with cares. Vital signs are stable. On room air. Tylenol given x1 last night for neck pain with no relief. K-pad has helped more with neck pain. Uses BSC with pivot-transfer, she is a heavy 2A with gait belt. Right groin site is slightly ecchymotic and covered with band-aid, site is soft and CSM is WNL. Follow up: Dismiss to [facility]'s Saturday?
--- NOTE | 2016-09-01 13:18 | NUR ---
A-SCREENED D/T LOS HT: 64 IN. WT: 88.0 KG. BMI: 33.8 SMALL OA TO COCCYX THAT WAS PRESENT UPON ADMIT LABS: NA 145, K+ 4.0, GLU 118, BUN 31, ASSISTANT STORE DIRECTOR 1.5, ALB 2.8 MEDS: VIT B6, FISH OIL, MVI, ZOFRAN, MORPHINE, PRN BOWEL MEDS DIET RX: REGULAR. PO INTAKE 75-100% EST NUTR NEEDS: 5251-2889 KCALS (15-20 KCALS/KG) 81-108 GM PROTEIN (1.5-2.0 GM/KG IBW) 1 ML FLUID/KCAL D-NOT AT NUTRITION RISK; NO NUTRITION DX IDENTIFIED I-CONTINUE W/CURRENT DIET RX M/E-WILL ASSIST NEEDED
--- NOTE | 2016-09-01 19:11 | NUR ---
Significant Event: PT A&Ox3, forgetful. VSS, on room air. Port to R)chest patent. Bandaid to R)groin. Ambulates with walker, gait belt and 2 assist. Small BM this shift. Needs lots of encouragement to do things. Irritable at times. Kpad to neck. Possible transfer to [facility] on saturday. Follow up:
[2016-09-02 04:58] LABS: ANION GAP 12.1 (10.0-19.0); CALCIUM 10.1 mg/dL (8.5-10.5); CREATININE 1.5 mg/dL (0.5-1.1); POTASSIUM 4.1 mMol/L (3.7-5.1)
--- NOTE | 2016-09-02 07:17 | NUR ---
Significant Event: Patient is alert/oriented x3, very forgetful and slow to respond at times. Vital signs are stable, continues on room air. Denies any pain, she has been comfortable with K-pad behind her neck. She slept in recliner throughout the night. Up with 2A to BSC, no incontinence noted last night. Right groin is soft, slightly ecchymotic, and CSM WNL. Follow up: Plan to dismiss to [facility] today or tomorrow.
--- NOTE | 2016-09-02 18:45 | NUR ---
Significant Event: ALERT AND ORIENTED TO QUESTIONS BUT MAKES CONFUSED STATEMENTS, SLOW TO RESPOND, IRRITABLE AT TIMES. UP TO BATHROOM WITH 1 ASSIST. SBP 105-150, HR 60-70'S, AFEBRILE, ROOM AIR. R) CHEST PORT. Follow up: DC TO [facility] SATURDAY?
--- NOTE | 2016-09-03 05:22 | NUR ---
FORGETFUL. HR 60-70s. SBP 120-140s. AFEBRILE. ROOM AIR. DENIES PAIN. NO BM. 1A WALKER GAITBELT. PLAN FOR [facility] TODAY.
--- NOTE | 2016-09-03 15:50 | NUR ---
Significant Event: Patient A/O x 3. Up with 1A and walker. VSS on RA. Ambulated in the halls with PT today. Orthostatic blood pressures negative. Right chest port saline locked with good blood return. Denies any pain throughout the day. Follow up: Continue as per plan of care. A.M. labs. Patient to go to [facility] at 1130 tomorrow.
--- NOTE | 2016-09-03 16:39 | NUR ---
Received a call this morning from Jolie Socrates. She states they can accept patient to [facility] tomorrow morning at 1130. I updated Yvonne of the plan and she is in agreement. I also updated Vincent MATIAS and Dr Moreno of discharge time 09/04. Orders on chart. Packet at desk.
[2016-09-04 04:08] LABS: CREATININE 1.5 mg/dL (0.5-1.1)
[2016-09-04 04:18] LABS: BASOPHIL % 0.5 %; EOSINOPHIL # 0.3 K/uL (0.0-0.5); EOSINOPHIL % 4.5 %; HEMATOCRIT 29.5 % (30.0-46.0); HEMOGLOBIN 9.6 g/dL (10.0-15.0); IMMATURE GRANULOCYTE # 0.1 K/uL (0.0-0.3); IMMATURE GRANULOCYTE % 1.7 %; LYMPHOCYTE # 1.2 K/uL (0.8-4.0); LYMPHOCYTE % 19.8 %; MCH 31.4 pg (27.0-34.0); MCHC 32.5 gm/dL (32.0-36.5); MCV 96.4 fl (83.0-98.0); MONOCYTE # 0.5 K/uL (0.0-1.0); MONOCYTE % 8.7 %; MPV 11.9 fl (9.4-12.4); NEUTROPHIL # (ANC) 3.9 K/uL (1.8-7.8); NEUTROPHIL % 64.8 %; NRBC % 0 /100WBC (0-0.00); PLATELET COUNT 149 K/uL (150-450); RBC 3.06 M/uL (3.00-5.00)
--- NOTE | 2016-09-04 04:40 | NUR ---
FORGETFUL. HR 60-70s. SBP 120-150s. ROOM AIR. AFEBRILE. 1A CHATO GB. NO BM. TO [facility] TODAY AT 1130.
--- NOTE | 2016-09-04 10:45 | NUR ---
Patient has signed discharge orders on chart. Orders faxed to [facility].
--- NOTE | 2016-09-04 11:48 | NUR ---
Patient A/O, but does not know that is May or the specific day. Vital signs stable: HR 69, RR 18, BP 153/62, O2 saturation 100% RA, temperature 97.3F, and denies pain or shortness of breath. Lung sounds clear and diminished. No problems voiding or having a BM. Last BM today. Up with 1A and walker. Condition stable. Report gien to [facility]'s RN Elizabeth. No questions at time of discharge. Patient's family on board with transfer. Jasen MATIAS 09/04/16
--- NOTE | 2016-09-04 12:02 | NUR ---
Patient left PCU at 1200 per wheelchair with [facility] transport staff. Packet sent with patient. No needs at time of discharge. Jasen MATIAS 09/04/16
== END 2016-09-04 12:00 | DRG 274 ==
LOC: GPCU 17:42 → GICU 17:42 → GPCU 17:42 → GICU 08-29 09:54 → GPCU 08-31 17:32
PROVIDERS: Family Medicine; Internal Medicine; Internal Medicine Interventional Cardiology; ADMIT Internal Medicine
PROC: B246ZZZ Ultrasonography of Right and Left Heart (ICD-10-PCS; principal; 2016-08-28)
PROC: B246ZZZ Ultrasonography of Right and Left Heart (ICD-10-PCS; 2016-08-29)
PROC: 027F3ZZ Dilation of Aortic Valve, Percutaneous Approach (ICD-10-PCS; 2016-08-29)
PROC: 4A023N7 Measurement of Cardiac Sampling and Pressure, Left Heart, Percutaneous Approach (ICD-10-PCS; 2016-08-29)
PROC: B2111ZZ Fluoroscopy of Multiple Coronary Arteries using Low Osmolar Contrast (ICD-10-PCS; 2016-08-29)
DX: I35.0 Nonrheumatic aortic (valve) stenosis (principal); N17.9 Acute kidney failure, unspecified; I12.9 Hypertensive chronic kidney disease with stage 1 through stage 4 chronic kidney disease, or unspecified chronic kidney disease; N18.3 Chronic kidney disease, stage 3 (moderate); R29.6 Repeated falls; R55 Syncope and collapse; Z66 Do not resuscitate; Z85.42 Personal history of malignant neoplasm of other parts of uterus; Z90.710 Acquired absence of both cervix and uterus; Z92.21 Personal history of antineoplastic chemotherapy; Z92.3 Personal history of irradiation
CPT/HCPCS: C1725; C1760; C1769; C1779; C1894; J1642; J1644; J2250; J2370; J2720; J3010; J7030; J7060; J7120

== ENCOUNTER → 2016-08-27 | Outpatient (CLI) | payer MEDICARE, OTHER ==
[2016-08-27 16:12] LABS: MAGNESIUM 1.9 mg/dL (1.8-2.6)
== END | disposition disaster alternative care site (69) ==
LOC: LFPA 15:13
PROVIDERS: Family Medicine
DX: R53.1 Weakness (principal)